=== PATIENT | male | born 1985 | race Caucasian/White ===

== ENCOUNTER 2018-09-10 03:12 | Emergency (ER) | payer OTHER ==
[~2018-09-10] VITALS: Ht 177.8 cm; Wt 116.1 kg
[2018-09-10] MEDS ORDERED: LISINOPRIL-HCT1 EAC1 PO (03:27)
== END 2018-09-10 05:16 | disposition short-term general hospital (02) ==
LOC: ED 03:12
DX: K91.840 Postprocedural hemorrhage of a digestive system organ or structure following a digestive system procedure (principal); Z79.899 Other long term (current) drug therapy
CPT/HCPCS: 80053; 85025; 85610; 85730; 96374; 99284-25; J2405; J7030